=== PATIENT | male | born 2000 | race Two or more races ===

== ENCOUNTER 2021-08-29 17:40 | Emergency (ER) | payer OTHER, SELFPAY ==
[2021-08-29 17:49] VITALS: BP 148/82; PULSE 98; RESP 16; TEMP 37.5; O2SAT 100
[2021-08-29 17:52] VITALS: BP 148/82; PULSE 98; RESP 16; TEMP 37.5; O2SAT 100
--- NOTE | 2021-08-29 17:58 | ED.EAR ---
HPI - Ear Problem General Chief complaint: Ear Stated complaint: right ear clogged and eardrum swollen Time Seen by Provider: 08/29/21 17:50 Source: patient Mode of arrival: ambulatory Limitations: no limitations History of Present Illness HPI Narrative: Patient presents today complaining of right ear pain, pressure, and feeling that he is underwater x10 days. Denies drainage or any other symptoms including congestion, rhinorrhea, cough, sore throat. Currently rates pain 3/10 and has tried no [id number] treatment prior to arrival. Related Data Home Medications Medication Instructions Recorded Confirmed No Home Medications 08/29/21 08/29/21 Allergies Allergy/AdvReac Type Severity Reaction Status Date / Time No Known Allergies Allergy Verified 08/29/21 17:51 Review of Systems Review of Systems: CONSTITUTIONAL: Denies body aches, fever, chills, or sweats. EYES: Denies visual changes, redness, or discharge. ENT: Denies rhinorrhea, congestion, sore throat. + Right ear pain and pressure CARDIOVASCULAR: Denies chest pain, palpitations, or edema. RESPIRATORY: Denies cough or dyspnea. GASTROINTESTINAL: Denies abdominal pain, nausea, vomiting, or diarrhea. GENITOURINARY: Denies dysuria or hematuria. SKIN: Denies rash, itching, or wounds. MUSCULOSKELETAL: Denies back pain, joint pain, or myalgia. NEUROLOGIC: Denies headache, numbness, tingling, or weakness. PSYCH: Denies depression or anxiety. PMFSH Comments At time of signature, I have reviewed and agree with nursing past medical, surgical, social and family history unless otherwise noted. Please see nursing chart for further information. There is no relevant family history pertinent to the presenting complaint Exam Narrative: GENERAL: Well-appearing, well-nourished, and in no acute distress. HEAD: Normocephalic, atraumatic. EYES: EOMI. No redness or drainage. Conjunctivae normal. ENT: Mucous membranes pink and moist. Nares clear. No rhinorrhea. Left TM normal. Right TM hernandez and severely retracted. Throat normal. Uvula midline. NECK: Normal AROM. Supple. No lymphadenopathy. CHEST: No respiratory distress. EXTREMITIES: Normal range of motion. No edema. SKIN: Warm, dry, no rash. Capillary refill normal. Normal skin turgor. NEURO: No focal deficits. Alert and oriented x3. Gait steady. PSYCH: Normal affect. No signs of depression or anxiety. Course Course Level of Care: Express Care Visit Vital Signs Vital signs: Vital Signs Temperature 99.5 F 08/29/21 17:49 Pulse Rate 98 08/29/21 17:49 Respiratory Rate 16 08/29/21 17:49 Blood Pressure 148/82 H 08/29/21 17:49 Pulse Oximetry 100 08/29/21 17:49 Oxygen Delivery Room Air 08/29/21 17:49 Temperature 99.5 F 08/29/21 17:52 Pulse Rate 98 08/29/21 17:52 Respiratory Rate 16 08/29/21 17:52 Blood Pressure 148/82 H 08/29/21 17:52 Pulse Oximetry 100 08/29/21 17:52 Oxygen Delivery Room Air 08/29/21 17:52 Reviewed. Pt has been instructed to follow up with his PCP regarding his elevated blood pressure today. Medical Decision Making Differential Diagnosis Differential Diagnosis: Otitis media, otitis externa, ruptured TM, serous otitis, eustachian tube dysfunction, cerumen impaction Vital Signs Vital Signs: Vital Signs Temperature 99.5 F 08/29/21 17:49 Pulse Rate 98 08/29/21 17:49 Respiratory Rate 16 08/29/21 17:49 Blood Pressure 148/82 H 08/29/21 17:49 Pulse Oximetry 100 08/29/21 17:49 Oxygen Delivery Room Air 08/29/21 17:49 Temperature 99.5 F 08/29/21 17:52 Pulse Rate 98 08/29/21 17:52 Respiratory Rate 16 08/29/21 17:52 Blood Pressure 148/82 H 08/29/21 17:52 Pulse Oximetry 100 08/29/21 17:52 Oxygen Delivery Room Air 08/29/21 17:52 Critical Care Time Critical Care Time Critical Care Time: No Discharge Plan Discharge Clinical Impression: Retracted tympanic membrane Qualifiers: Laterality: right Qualifie
== END 2021-08-29 18:02 | disposition home or self-care (01) ==
PROVIDERS: Emergency Provider Nurse Practitioner
DX: H73.891 Other specified disorders of tympanic membrane, right ear (principal)
CPT/HCPCS: 99202; G0463

== ENCOUNTER 2022-06-29 13:33 | Emergency (ER) | payer OTHER, SELFPAY ==
--- NOTE | ~2022-06-29 | US_ITS ---
EXAMINATION: US scrotum doppler DATE: 06/29/2022 16:28 INDICATION: Right testicular pain and lump. TECHNIQUE: Grayscale and Doppler ultrasound images of the testes were obtained. COMPARISON: None. FINDINGS: The right testis measures 4.4 x 2.3 x 3.1 cm. The left testis measures 4.9 x 2.1 x 3.3 cm. There is bilateral testicular microlithiasis. There is normal vascular flow to both testes. The right epididymis demonstrates an 18 mm cyst. The left epididymis demonstrates a 5 mm cyst. There is normal vascular flow in the epididymides. There is no varicocele or hydrocele. IMPRESSION: 1. Benign cysts in the epididymides. Reviewed, dictated and finalized at location E.
[2022-06-29 14:00] VITALS: BP 150/96; PULSE 88; RESP 16; TEMP 36.9; O2SAT 100
[2022-06-29 16:02] VITALS: BP 138/89; PULSE 92; RESP 17; O2SAT 99
[2022-06-29 16:27] LABS: Appearance Urine Clear (Clear); Bacteria Urine None Seen /hpf; Bilirubin Urine Negative (Negative); Blood Urine Negative (Negative); Color Urine Yellow (Yellow); Glucose Urine UA Negative (Negative); Ketones Urine Negative (Negative); Leukocyte Esterase Ur 1+ LEU/UL (Negative); Nitrate Urine Negative (Negative); Non Pathogenic Casts 0-2; Protein Urine Negative (Negative); RBC Urine 0-2 /hpf (0-2); Specific Grav Ur 1.018 (1.001-1.035); Squamous Epithelial Cell Urine None seen /hpf (Few); Urobilinogen Urine 0.2 mg/dL (<2.0); WBC Urine 21-50 /hpf; pH Urine 6.5 (5.0-9.0)
--- NOTE | 2022-06-29 16:44 | ED.MALEGU ---
HPI - Male Genitourinary General Chief complaint: Urogenital-Male Stated complaint: knot in testicle, abdominal pain Time Seen by Provider: 06/29/22 16:02 History of Present Illness HPI Narrative: Patient is a 21-year-old male presenting with testicular swelling. Patient states that he first noticed a lump on his right testicle several years ago. States that it has been getting a bit larger over the last several weeks. States that it sometimes hurts. States he is concerned he has testicular cancer. Denies fevers or chills, penile discharge, dysuria, hematuria, abdominal pain, nausea or vomiting. Related Data Allergies Allergy/AdvReac Type Severity Reaction Status Date / Time No Known Allergies Allergy Verified 06/29/22 16:01 Review of Systems Review of Systems: All systems reviewed & are unremarkable except as noted in HPI and below Exam Narrative: GENERAL: Well-appearing, well-nourished, and in no acute distress. HEAD: Normocephalic, atraumatic. EYES: PERRLA and EOMI. ENT: Nares clear, no rhinorrhea or epistaxis. Mucous membranes moist. NECK: Supple. CHEST: Clear to auscultation. No respiratory distress. 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 No edema. SKIN: Warm, dry, no rash. NEURO: No focal deficits. Alert and oriented x3. PSYCH: Normal mood and affect. Course Vital Signs Vital signs: Vital Signs Temperature 98.4 F 06/29/22 14:00 Pulse Rate 88 06/29/22 14:00 Respiratory Rate 16 06/29/22 14:00 Blood Pressure 150/96 H 06/29/22 14:00 Pulse Oximetry 100 06/29/22 14:00 Oxygen Delivery Room Air 06/29/22 14:00 Temperature 98.4 F 06/29/22 14:00 Pulse Rate 88 06/29/22 18:46 Respiratory Rate 14 06/29/22 18:46 Blood Pressure 140/89 06/29/22 18:46 Pulse Oximetry 99 06/29/22 18:46 Oxygen Delivery Room Air 06/29/22 14:00 MDM - Male Genitourinary MDM Narrative Medical decision making narrative: Patient is a 21-year-old male presenting with a right testicular swelling. Vitals within normal limits. Exam remarkable for the above. Ultrasound of the testicles reveal benign cysts in the epididymides. UA with 21-50 WBCs and 1+ leuk esterase. Chlamydia and gonorrhea are pending at this time. Patient does state that he has unprotected sex with multiple partners. He is agreeable with empiric treatment. Rocephin IM and oral Doxy have been ordered. We will send him out on a weeks worth of doxycycline. Advised sexual abstinence for at least 2 weeks. Advised that he inform his partners. Recommended he follow-up with PCP and urology. Appropriate return precautions given. Discharged stable condition. Differential Diagnosis Differential diagnosis: Likely urinary tract infection, epididymitis and other (testicular torsion, testicular mass, epidydimal cysts, UTI) Lab Data Labs: Lab Results 06/29/22 06/29/22 Range/Units 16:07 16:08 Urine Color Yellow (Yellow) Urine Appearance Clear (Clear) Urine pH 6.5 (5.0-9.0) Ur Specific [place] 1.018 (1.001-1.035) Urine Protein Negative (Negative) mg/dL Urine Glucose (UA) Negative (Negative) mg/dL Urine Ketones Negative (Negative) mg/dL Ur Blood (Man) Negative (Negative) Urine Nitrate Negative (Negative) Urine Bilirubin Negative (Negative) Urine Urobilinogen 0.2 (<2.0) mg/dL Leukocyte Esterase Rfl 1+ H (Negative) SHAMA/UL Urine RBC 0-2 (0-2) /hpf Urine WBC 21-50 H /hpf Ur Squamous Epith Cells None seen (Few) /hpf Urine Bacteria None seen /hpf Urine Casts 0-2 C.trachomatis RNA (TMA) Pending N.gonorrhoeae RNA (TMA) Pending Critical Care Time Critical Care Time Critical Care Time: No Discharge Plan Discharge
[2022-06-29 16:54] LABS: Add Urine Microscopic? YES
[2022-06-29] MEDS: cefTRIAXone 1 GM VIAL 0.5 GM IM (18:35)
[2022-06-29] MEDS: LIDOCAINE HCL 1% LOCAL INJ 10 ML VIAL (18:36)
[2022-06-29] MEDS: DOXYCYCLINE HYCLATE 100 MG TABLET PO (18:36)
[2022-06-29 18:46] VITALS: BP 140/89; PULSE 88; RESP 14; O2SAT 99
== END 2022-06-29 18:48 | disposition home or self-care (01) ==
PROVIDERS: Emergency Medicine; Emergency Provider Emergency Medicine
DX: N50.3 Cyst of epididymis (principal); N50.811 Right testicular pain
CPT/HCPCS: 76870; 81001; 87086; 87491; 87591; 93976; 96372; 99284; A9270; J0696